=== PATIENT | female | born 1975 | race Caucasian/White ===

== ENCOUNTER 2022-07-17 09:24 | Outpatient (CLI) | payer BC, SELFPAY ==
--- NOTE | 2022-07-17 09:45 | CRLHL7_ITS ---
For Patients: As a result of the Century Cures Act, medical imaging exams and procedure reports are released immediately into your electronic medical record. You may view this report before your referring provider. If you have questions, please contact your health care provider. DIGITAL DIAGNOSTIC BILATERAL MAMMOGRAM USING TOMOSYNTHESIS AND COMPUTER-AIDED DETECTION BILATERAL BREAST ULTRASOUND CLINICAL HISTORY: LEFT breast lump. COMPARISON: 10/31/2021, 12/17/2019, 10/21/2018, 11/08/2017, 11/02/2017, 10/19/2017. TECHNIQUE: Digital BILATERAL mammogram in four projections. Tomosynthesis and CAD utilized. Real-time ultrasound imaging of BILATERAL breast with imaging documentation. BREAST COMPOSITION: The breasts are heterogeneously dense, which may obscure small masses. FINDINGS: BILATERAL mammogram images demonstrate nodular densities within the subareolar RIGHT breast, lateral LEFT breast and lower inner quadrant LEFT breast. No architectural distortion. Post-biopsy changes within the upper outer quadrant LEFT breast. No adenopathy or suspicious calcifications. Targeted RIGHT breast ultrasound performed in the subareolar region. Multiple benign cystic areas are present at 12 o`clock 1 cm from the nipple including simple cysts and clustered microcysts. These measure up to 1.5 cm and are benign. Targeted LEFT breast ultrasound performed laterally demonstrates a simple anechoic cyst with increased through-transmission measuring 1.7 x 2.1 x 1.3 cm at 3 o`clock 6 cm from the nipple. This corresponds to the area of palpable concern. Additional targeted LEFT breast ultrasound lower inner quadrant 8 o`clock 9 cm from the nipple demonstrates a solid benign hypoechoic mass measuring 2.1 x 1.6 x 0.9 cm consistent with fibroadenoma. IMPRESSION: 1. Palpable simple cyst LEFT breast 3 o`clock 6 cm from the nipple measuring 1.7 cm. 2. Incidental benign simple cyst and clustered microcysts within the RIGHT breast 12 o`clock 1 cm from the nipple. 3. Incidental benign fibroadenoma LEFT breast 8 o`clock 9 cm from the nipple measuring 2.1 cm. RECOMMENDATIONS: Annual BILATERAL screening mammography. Results and recommendations discussed with the patient. BI-RADS Category 2: Benign A lay language report of this examination will be provided to the patient. Dictated by William Judge MD @ 07/17/2022 11:19:26 AM j/Dictated by: William Judge MD @ 07/17/2022 11:19:00 AM (Electronically Signed)
--- NOTE | 2022-07-17 10:15 | CRLHL7_ITS ---
For Patients: As a result of the Cures Act, medical imaging exams and procedure reports are released immediately into your electronic medical record. You may view this report before your referring provider. If you have questions, please contact your health care provider. PLEASE SEE DIGITAL DIAGNOSTIC BILATERAL MAMMOGRAM PERFORMED SAME DAY CRL:val neal/Dictated by: William Judge MD @ 07/17/2022 11:19:00 AM (Electronically Signed)
== END 2022-07-17 09:25 | disposition home or self-care (01) ==
LOC: MAMMO 09:25
PROVIDERS: PCP Family Medicine; Visit Provider Family Medicine
DX: N63.20 Unspecified lump in the left breast, unspecified quadrant (principal); N60.02 Solitary cyst of left breast; N60.01 Solitary cyst of right breast; D24.2 Benign neoplasm of left breast
CPT/HCPCS: 76642; 77066; G0279